=== PATIENT | male | born 2005 | race Caucasian/White ===

== ENCOUNTER 2025-01-01 12:41 | Emergency (ER) | payer SELFPAY ==
[2025-01-01] VITALS (9 sets, daily range): BP systolic 125–178; BP diastolic 76–97; PULSE 50–96; RESP 17; TEMP 36.7; O2SAT 96–100; BMI 38.0
[2025-01-01 13:28] LABS: Basophils % 0.4 %; Eosinophils # 0.2 10^3/uL (0.0-0.8); Eosinophils % 1.9 %; Hematocrit 45.6 % (37-53); Lymphocytes # 3.7 10^3/uL (0.8-4.8); Lymphocytes % 38.9 %; Mean Corpuscular HGB Conc 32.7 g/dL (30-55); Mean Corpuscular Hemoglobin 27.8 pg (27-33); Mean Corpuscular Volume 85.1 fl (82-101); Mean Platelet Volume 9.7 fL (7.4-10.4); Monocytes # 0.8 10^3/uL (0.2-0.9); Monocytes % 8.3 %; Neutrophils # 4.72 10^3/uL (1.8-7.7); Neutrophils % 50.3 %; Nucleated Red Blood Cells % 0 %; Platelet Count 284 10^3/cmm (157-399); Red Blood Count 5.36 10^6/uL (3.85-5.65); Red Cell Distribution Width 12.9 % (12.1-15.1); White Blood Count 9.39 10^3/uL (3.29-11.43)
[2025-01-01 13:47] LABS: Alanine Aminotransferase 33 U/L (0-41); Albumin Level 4.2 g/dL (3.5-5.2); Alkaline Phosphatase 48 U/L (40-130); Anion Gap 17.9 (5-19); Aspartate Amino Transferase 42 U/L (0-40); Blood Urea Nitrogen 13 mg/dL (6-20); Calcium 9.2 mg/dL (8.5-10.5); Carbon Dioxide 19 mmol/L (22-29); Chloride 107 mmol/L (98-107); Creatinine Clr Calc Pharmacy 229.8834; Globulin 2.9 g/dL (1.3-4.6); Glomerular Filtration Rate 142.4 mL/min (90-130); Glucose 98 mg/dL (65-115); Magnesium 2.1 mg/dL (1.7-2.3); Osmolality Calculated 290 mOsm/kg (285-295); Potassium 3.9 mmol/L (3.5-5.1); Sodium 140 mmol/L (136-145); Total Bilirubin 0.3 mg/dL (0.15-1.2); Total Protein 7.1 g/dL (6.6-8.7)
--- NOTE | 2025-01-01 13:58 | W.ED.SYNCOPE ---
HPI - Syncope General: Chief Complaint: Syncope Stated Complaint: syncope; seizure Time Seen by Provider: 01/01/25 12:45 History of Present Illness: 19-year-old male presents to the emergency room with complaints of syncopal episode after he stood when going to the bathroom after going to the restroom. He had a bowel movement stood took a step or 2 then got lightheaded dizzy and fell to the ground. He can remember everything that happened never had full loss of consciousness. No injury is a fall. He denies any further vomiting. Did not strike his head. Associated symptoms: Deny abdominal pain, chest pain or fever(s) Related Data Home Medications ?Medication ?Instructions ?Recorded ?Confirmed ibuprofen 200 mg tablet (Advil) 800 mg PO Q6H PRN Fever Or Pain 01/01/25 01/01/25 Allergies Allergy/AdvReac Type Severity Reaction Status Date / Time No Known Allergies Allergy Verified 01/01/25 12:49 Review of Systems Const: Denies: fever(s) or chills Card: Denies: chest pain Resp: Denies: dyspnea GI: Denies: abdominal pain : Denies: dysuria, urinary frequency or urinary urgency Musc: Denies: neck pain or back pain Skin/Breast: Denies: rash Physical Exam Const: GENERAL APPEARANCE: cooperative ORIENTATION/CONSCIOUSNESS: Yes awake, Yes oriented to person, Yes oriented to place and Yes oriented to time HENMT: COMMON NORMALS: normocephalic, atraumatic and hearing grossly normal bilaterally HEAD & SCALP: normocephalic and atraumatic Resp: COMMON NORMALS: normal respiratory effort, No retractions, No use of accessory muscles and clear to auscultation bilaterally AUSCULTATION: clear to auscultation bilaterally Cardio: COMMON NORMALS: regular rate, regular rhythm and No murmurs present (Cardio) RATE: regular rate RHYTHM: regular rhythm GI: COMMON NORMALS: Soft to palpation and No hepatosplenomegaly present AUSCULTATION: Yes normoactive bowel sounds PALPATION: Yes Soft to palpation, No Tenderness to palpation present (GI), No Guarding due to palpation present (GI) and Yes No hepatosplenomegaly present Extremity: COMMON NORMALS: normal to inspection, capillary refill normal, no clubbing, cyanosis or edema, no calf tenderness and no pedal edema Neuro: SENSORIUM/ORIENTATION: Yes oriented to person, Yes oriented to place and Yes oriented to time Skin: COMMON NORMALS: no rashes or lesions noted GENERAL SKIN EXAM: no rashes or lesions noted Course Vital Signs: Vital signs: Vital Signs Temperature 98.1 F 01/01/25 12:43 Pulse Rate 70 01/01/25 16:46 Respiratory Rate 17 01/01/25 12:43 Blood Pressure 125/77 01/01/25 16:46 Pulse Oximetry 98 01/01/25 16:46 Oxygen Delivery Me thod Room Air 01/01/25 15:30 MDM - Syncope Medical Decision Making Patient is feeling better after getting fluids labs reviewed. I do not believe he had a seizure. Recommend rest will discharge home follow-up with primary care if he has recurrent episodes return Lab Data 01/01/25 13:16 01/01/25 13:[address] 01/01/25 14:09 IMPRESSION: No acute intracranial abnormality. Laboratory Results WBC 9.39 10^3/uL (3.29-11.43) 01/01/25 13:16 RBC 5.36 10^6/uL (3.85-5.65) 01/01/25 13:16 Hgb 14.90 g/dL (11.27-16.99) 01/01/25 13:16 Hct 45.6 % (37-53) 01/01/25 13:16 MCV 85.1 fl (82-101) 01/01/25 13:16 MCH 27.8 pg (27-33) 01/01/25 13:16 MCHC 32.7 g/dL (30-55) 01/01/25 13:16 RDW 12.9 % (12.1-15.1) 01/01/25 13:16 Plt Count 284 10^3/cmm (157-399) 01/01/25 13:16 MPV 9.7 fL (7.4-10.4) 01/01/25 13:16 Neut % (Auto) 50.3 % 01/01/25 13:16 Lymph % (Auto) 38.9 % 01/01/25 13:16 [place] % (Auto) 8.3 % 01/01/25 13:16 Eos % (Auto) 1.9 % 01/01/25 13:16 Baso % (Auto) 0.4 % 01/01/25 13:16 Neut # (Auto) 4.72 10^3/uL (1.8-7.7) 01/01/25 13:16 Lymph # (Auto) 3.7 10^3/uL (0.8-4.8) 01/01/25 13:16 [place] # (Auto) 0.8 10^3/uL (0.2-0.9) 01/01/25 13:16 Eos # (Auto) 0.2 10^3/uL (0.0-0.8) 01/01/25 13:16 Baso # (Auto) 0.0 10^3/uL (0.0-0.1) 01/01/25 13:16 Nucleated RBC % (auto) 0 % 01/01/25 13:16 Nucleated RBCs # 0.0 /100WBC 01/01/25 13:16 Sodium 140 mmol/L (136-145) 01/01/25 13:16 Potassium 3.9 mmol/L (3.5-5.1) 01/01/25 13:16 Chloride 107 mmol/L (98-107) 01/01/25 13:16 Carbon Dioxide 19 mmol/L (22-29) L 01/01/25 13:16 Anion Gap 17.9 (5-19) 01/01/25 13:16 BUN 13 mg/dL (6-20) 01/01/25 13:16 Creatinine 0.7 mg/dL (0.7-1.2) 01/01/25 13:16 GFR Calculation 142.4 mL/min (90-130) H 01/01/25 13:16 Glucose 98 mg/dL (65-115) 01/01/25 13:16 Calculated Osmolality 290 mOsm/kg (285-295) 01/01/25 13:16 Calcium 9.2 mg/dL (8.5-10.5) 01/01/25 13:16 Magnesium 2.1 mg/dL (1.7-2.3) 01/01/25 13:16 Total Bilirubin 0.3 mg/dL (0.15-1.2) 01/01/25 13:16 AST 42 U/L (0-40) H 01/01/25 13:16 ALT 33 U/L (0-41) 01/01/25 13:16 Alkaline Phosphatase 48 U/L (40-130) 01/01/25 13:16 Total Protein 7.1 g/dL (6.6-8.7) 01/01/25 13:16 Albumin 4.2 g/dL (3.5-5.2) 01/01/25 13:16 Globulin 2.9 g/dL (1.3-4.6) 01/01/25 13:16 All radiology interpretation(s) finalized by discharge Discharge Plan Discharge Patient Disposition: Home Clinical Impression: Syncope due to orthostatic hypotension Condition: Stable Prescriptions: No Action ibuprofen [Advil] 200 mg Tablet 800 mg PO Q6H PRN (Reason: Fever Or Pain) Discharge Orders: Discharge ED (Routine); Ordered 01/01/25 Ordered By: Munir Elizalde Discharge Diet: Usual diet Discharge Activity: Increase activity as tolerated Patient Instructions: Syncope (ED), Opioid Safety, Pain Management Activity Restrictions/Additional Instructions: Thank you for choosing [facility] for your healthcare needs today. It is very important that you follow up as instructed or that you return to the Emergency Department should you have concerns or if your condition changes or worsens in any way. Print Language: Prydeinig Coding Level of Care Code ED Dyer Helper for Janell Pantoja
--- NOTE | 2025-01-01 14:09 | ECG_ITS ---
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 Measurements Intervals [place] Rate: 68 P: 17 WV: 166 QRS: 26 QRSD: 117 T: 11 QT: 383 QTc: 410 Interpretive Statements SINUS RHYTHM WITH SINUS ARRHYTHMIA MODERATE INTRAVENTRICULAR CONDUCTION DELAY [110+ ms QRS DURATION] No previous ECG available for comparison Electronically Signed On 01-02-2025 12:34:36 CDT by Delaney Rankin M.D. [email or web address]
--- NOTE | 2025-01-01 14:09 | CTR_ITS ---
PROCEDURE INFORMATION: Exam: CT Head Without Contrast Exam date and time: 01/01/2025 2:34 PM Age: 19 years old Clinical indication: Injury or trauma; Fall; Blunt trauma (contusions or hematomas); Additional info: Fall closed head injury TECHNIQUE: Imaging protocol: Computed tomography of the head without contrast. Radiation optimization: All CT scans at this facility use at least one of these dose optimization techniques: automated exposure control; mA and/or kV adjustment per patient size (includes targeted exams where dose is matched to clinical indication); or iterative reconstruction. COMPARISON: No relevant prior studies available. RADIATION DOSE METRICS: Total DLP (mGy-cm): 1186.39 FINDINGS: Brain: The brain is unremarkable. There is no mass effect or significant white matter disease. There is no acute intracranial hemorrhage. Cerebral ventricles: There is no significant ventricular dilation. The basal cisterns are unremarkable. Paranasal sinuses: The paranasal sinuses are clear. Mastoid air cells: The mastoid air cells are clear. Bones: The calvarium is intact. Soft tissues: The visible extracranial soft tissues are unremarkable. CT/CT head wo con* [id number] IMPRESSION: No acute intracranial abnormality.
== END 2025-01-01 16:47 | disposition home or self-care (01) ==
PROVIDERS: Emergency Provider Family Medicine
DX: I95.1 Orthostatic hypotension (principal)
CPT/HCPCS: 70450; 80053; 83735; 85025; 93005; 99284